=== PATIENT | female | born 1960 ===

== ENCOUNTER 2016-12-09 11:07 | Emergency (ER) | payer MEDICAID ==
[2016-12-09 11:16] VITALS: PULSE 84; TEMP 97.6
[2016-12-09 11:48] LABS: RBC URINE 8 /hpf (0-3); URINE BACTERIA RARE (<OCC); URINE BILIRUBIN NEGATIVE (NEGATIVE); URINE BLOOD 2+ (NEGATIVE); URINE COLOR Yellow (YELLOW); URINE GLUCOSE (UA) NORMAL (Normal); URINE KETONE NEGATIVE (NEGATIVE); URINE LEUKOCYTE ESTERASE NEG Leu/uL (Negative); URINE PROTEIN NEGATIVE (NEGATIVE); URINE UROBILINOGEN NORMAL mg/dL (0.2-1.0); WBC URINE 1 /hpf (0-5)
--- NOTE | 2016-12-09 12:34 | C.PDOC ---
History Of Present Illness The patient, a 56y/o female, presents to the ED for evaluation of hematuria, dyrusia and vaginal discharge which began a few days ago. Patient denies fever, chills, back pain, nausea, vomiting, and abdominal pain . Time Seen by Provider: 12/09/16 11:38 Chief Complaint (Nursing): Female Genitourinary History Per: Patient History/Exam Limitations: no limitations Onset/Duration Of Symptoms: Days Current Symptoms Are (Timing): Still Present Quality Of Discomfort: "Pain" Associated Symptoms: Urinary Symptoms (+hematuria, dysuria ), Other (+vaginal discharge ). denies: Fever, Chills, Nausea, Vomiting, Back Pain Additional History Per: Patient Abnormal Vaginal Bleeding: No Past Medical History Reviewed: Historical Data, Nursing Documentation, Vital Signs Vital Signs: Last Vital Signs Temp 97.6 F 12/09/16 11:14 Pulse 84 12/09/16 13:44 Resp 16 12/09/16 13:44 BP 129/84 12/09/16 13:44 Pulse Ox 98 12/09/16 13:44 - Medical History PMH: Arthritis, Asthma, Depression, HTN Surgical History: No Surg Hx Family History: States: Unknown Family Hx - Social History Hx Tobacco Use: Yes Hx Alcohol Use: No Hx Substance Use: No - Immunization History Hx Tetanus Toxoid Vaccination: No Hx Influenza Vaccination: No Hx Pneumococcal Vaccination: No Review Of Systems Except As Marked, All Systems Reviewed And Found Negative. Constitutional: Negative for: Fever, Chills Gastrointestinal: Negative for: Nausea, Vomiting Genitourinary: Positive for: Dysuria, Hematuria, Vaginal Discharge Musculoskeletal: Negative for: Back Pain Physical Exam - Physical Exam Appears: Non-toxic, No Acute Distress Skin: Normal Color, Warm, Dry Head: Atraumatic, Normacephalic Eye(s): bilateral: Normal Inspection Oral Mucosa: Moist Neck: Supple Chest: Symmetrical, No Tenderness Cardiovascular: Rhythm Regular, No Murmur Respiratory: Normal Breath Sounds Back: Normal Inspection, No Vertebral Tenderness, No Paraspinal Tenderness Pelvic: Normal Bimanual Exam, Vaginal Discharge (white, "cottage-cheese" ), No Cervical Motion Tenderness, No Adnexal Tenderness, No Tender Uterus Extremity: Normal ROM, Capillary Refill (less than 2 seconds ) Neurological/Psych: Oriented x3, Normal Speech, Normal Cognition, Normal Motor, Normal Sensation Gait: Steady ED Course And Treatment O2 Sat by Pulse Oximetry: 99 (on RA) Pulse Ox Interpretation: Normal Progress Note: UA ordered and reviewed. Pt was tx with Rocephin and Zithromax. Diflucan 150 mg po given. Disposition - Disposition Disposition: HOME/ ROUTINE Disposition Time: 13:15 Condition: STABLE Additional Instructions: Follow up with your PMD within 1-2 days. Return to ED if feel worse. 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 - Scribe Statement The provider has reviewed the documentation as recorded by the Scribe (Betsy Saenz) All medical record entries made by the Scribe were at my direction and personally dictated by me. I have reviewed the chart and agree that the record accurately reflects my personal performance of the history, physical exam, medical decision making, and the department course for this patient. I have also personally directed, reviewed, and agree with the discharge instructions and disposition.
[2016-12-09] MEDS ORDERED: cefTRIAXone (Rocephin) 250 mg Inj IM STA (13:04)
[2016-12-09 13:45] VITALS: BP 129/84; RESP 16
[2016-12-09 23:15] VITALS: O2SAT 99
== END 2016-12-09 13:42 | disposition home or self-care (01) ==
LOC: C.ER 11:07
DX: N39.0 Urinary tract infection, site not specified (principal); B37.3 Candidiasis of vulva and vagina
CPT/HCPCS: 81001; 87070; 87086; 96372; 99284; J0696

== ENCOUNTER 2017-12-08 09:47 | Emergency (ER) | payer MEDICAID ==
[2017-12-08 09:48] VITALS: BMI 41.0
[2017-12-08 09:58] VITALS: BP 150/98; PULSE 85; RESP 18; TEMP 97.5; O2SAT 99
[2017-12-08 11:24] LABS: SQUAMOUS EPITHIAL 1 /hpf (0-5); URINE BILIRUBIN NEGATIVE (NEGATIVE); URINE BLOOD 2+ (NEGATIVE); URINE CLARITY Clear (Clear); URINE COLOR Yellow (YELLOW); URINE GLUCOSE (UA) NORMAL (Normal); URINE LEUKOCYTE ESTERASE NEG Leu/uL (Negative); URINE PROTEIN NEGATIVE (NEGATIVE); URINE UROBILINOGEN NORMAL mg/dL (0.2-1.0)
[2017-12-08 11:52] LABS: URINE BACTERIA RARE (<OCC)
[2017-12-08] MEDS ORDERED: cefTRIAXone (Rocephin) 250 mg Inj IM STA (11:54)
--- NOTE | 2017-12-08 12:16 | C.PDOC ---
History Of Present Illness 57 y/o female presents to the ED complaining of vaginal irritation associated with dark discharge and pruritis from the vaginal area, onset today. Also states she frequently has pilonidal abscesses, last one was 2 months ago. She has no current abscesses. Patient also reports she missed her pap smear in August due to Medicaid issue and has pmhx of HPV, requesting referral for follow up. Otherwise she denies any vaginal bleeding, fevers, or chills. Time Seen by Provider: 12/08/17 11:01 Chief Complaint (Nursing): Female Genitourinary History Per: Patient History/Exam Limitations: no limitations Onset/Duration Of Symptoms: Days Current Symptoms Are (Timing): Still Present Past Medical History Reviewed: Historical Data, Nursing Documentation, Vital Signs Vital Signs: Last Vital Signs Temp 97.5 F L 12/08/17 09:55 Pulse 85 12/08/17 09:55 Resp 18 12/08/17 09:55 BP 150/98 H 12/08/17 09:55 Pulse Ox 99 12/08/17 12:20 - Medical History PMH: Arthritis, Asthma, Depression, HTN Other PMH: HPV Surgical History: Family History: States: Unknown Family Hx - Social History Hx Tobacco Use: Yes Hx Alcohol Use: No Hx Substance Use: No - Immunization History Hx Tetanus Toxoid Vaccination: No Hx Influenza Vaccination: No Hx Pneumococcal Vaccination: No Review Of Systems Except As Marked, All Systems Reviewed And Found Negative. Constitutional: Negative for: Fever, Chills Genitourinary: Positive for: Vaginal Discharge, Other (vaginal irritation). Negative for: Vaginal Bleeding Skin: Negative for: Other (abscess) Physical Exam - Physical Exam Appears: Non-toxic, No Acute Distress Skin: Normal Color, Warm, Dry, Other (No abscesses noted) Head: Atraumatic, Normacephalic Eye(s): bilateral: Normal Inspection Oral Mucosa: Moist Neck: Normal ROM, Supple Chest: Symmetrical Cardiovascular: Rhythm Regular, No Murmur Respiratory: Normal Breath Sounds, No Accessory Muscle Use Pelvic: No Vaginal Bleeding, Vaginal Discharge (white discharge noted), No Cervical Motion Tenderness, Other (Cervix only partially visualized secondary to body habitus) Extremity: Bilateral: Atraumatic, Normal Color And Temperature, Normal ROM Neurological/Psych: Oriented x3, Normal Speech Gait: Steady ED Course And Treatment O2 Sat by Pulse Oximetry: 99 (RA) Pulse Ox Interpretation: Normal Progress Note: Urinalysis and Chlamydia/GC swabs sent. Patient given IV Rocephin and Zithro in the ED. Patient is stable for d/c home. Provided with rx for Diflucan and Metrogel. Advised to follow up with OBGYN for further evaluation. Patient states her Medicaid becomes active in January and she will schedule follow up for next month. Disposition Counseled Patient/Family Regarding: Studies Performed, Diagnosis, Need For Followup, Rx Given - Disposition Disposition: HOME/ ROUTINE Disposition Time: 12:17 Condition: STABLE Additional Instructions: Folow up with your PMD and OBGYN within 2-3 days. Return to ED if feel worse. 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 - Scribe Statement The provider has reviewed the documentation as recorded by the Scribe (Erika Ragsdale) All medical record entries made by the Scribe were at my direction and personally dictated by me. I have reviewed the chart and agree that the record accurately reflects my personal performance of the history, physical exam, medical decision making, and the department course for this patient. I have also personally directed, reviewed, and agree with the discharge instructions and disposition.
== END 2017-12-08 12:23 | disposition home or self-care (01) ==
LOC: C.ER 09:47
DX: N76.0 Acute vaginitis (principal)
CPT/HCPCS: 81001; 87491; 87591; 96372; 99285; J0696